=== PATIENT | female | born 1975 | race Caucasian/White ===

== ENCOUNTER 2024-09-20 15:05 | Emergency (ER) | payer OTHER, SELFPAY ==
--- NOTE | 2024-09-20 15:21 | ED.GENMED ---
ED Provider Triage
<Eduardo Najera PA-C - Last Filed: 09/20/24 15:23>
-
Patient seen by provider in Triage?: Seen in Triage
Attestation: A medical screening examination has been initiated by a qualified medical provider. Based on the assessment performed at this time, it has been determined that an emergent medical condition may exist and the patient has been informed
that further medical evaluation and possible additional diagnostic testing may be needed.
HPI: 49-year-old female presenting to the emergency department for evaluation after she excellently slid down a few steps at home. Patient reporting bilateral ankle pain. No other extremity related injuries. No head injury, no LOC. Patient
denies any use of anticoagulants. X-rays of both ankles ordered
GENERAL: Alert , in no apparent distress
EYE: No visual abnormalities.
NECK: Trachea midline
ENT: No visible abnormalities.
LUNGS: No acute respiratory distress
NEUROLOGICAL: Alert and oriented
SKIN: Skin intact. No visible changes.
MUSCULOSKELETAL: Moving extremities normally
PSYCH: Normal and appropriate interaction.
This is a medical evaluation conducted in person to initiate diagnostic evaluation and provide initial therapeutics. Please see further documentation by the treating clinician.
History of Present Illness
<Eduardo Najera PA-C - Last Filed: 09/20/24 15:23>
General
Chief Complaint: Fall
Time Seen by Provider: 09/20/24 16:54
<Bo Cintron Jr., PA-C - Last Filed: 09/20/24 18:08>
General
Source: patient
Exam Limitations: none
Nursing documentation reviewed up to this point in time: agreed with
History of Present Illness
History of Present Illness:
49-year-old female past medical history of seizures diabetes presenting to the emergency department after he slipped on an indoor step injured both of her ankles left side worse on the right has been able to walk but has been hobbling around.
Denies any additional injuries otherwise no numbness or weakness. No neck pain no head pain not on blood thinners.
Past History
<HEATHER Palacios Last Filed: 09/20/24 15:23>
Past History
ED Past Medical History: None
ED Past Surgical History: None
Social History
Living: with family
Review of Systems
<Bo Cintron Jr., PA-C - Last Filed: 09/20/24 18:08>
Review of Systems
Allergies reviewed?: Yes
All Other Systems: ROS reviewed and negative except as documented in HPI and ROS
Phy Exam
<Bo Cintron Jr., PA-C - Last Filed: 09/20/24 18:08>
Physical Exam
Physical Exam:
GENERAL: Alert , in no apparent distress
EYE: pupils equal and reactive
NECK: Supple, no significant adenopathy.
ENT: o/p clr, mmm.
CARDIAC: Regular rate and rhythm .
LUNGS: Clear breath sounds bilaterally, no acute respiratory distress, no wheezes/rales/rhonchi
ABDOMEN: Soft, without focal tenderness, no r/g, no cvat
NEUROLOGICAL: Alert and oriented, no focal neuro deficits
SKIN: Warm and dry, skin intact.
MUSCULOSKELETAL: Swelling tenderness palpation mainly to the left lateral malleolus. Remainder of the foot and medial malleolus without significant tenderness good range of motion no tenderness throughout the tib-fib or knee. Right ankle without
significant discomfort no pain to the foot. No edema, well perfused.
PSYCH: Normal and appropriate interaction.
Course
<HEATHER Palacios Last Filed: 09/20/24 15:23>
Orders/Labs/Results
Orders:
Orders
09/20/24 15:22
CR Ankle - Left Min 3 Views Urgent
Comment:
Reason For Exam: fall, pain
CR Ankle - Right Min 3 Views * Urgent
Comment:
Reason For Exam: fall, pain
09/20/24 17:19
boot [Ortho Boot Left- Treatment] ONCE
Short or tall?: Tall
Vital Signs
Initial and Last Documented VS:
Initial Vital Signs
Temp Pulse Resp BP Pulse Ox
98.1 F 105 20 179/103 99
09/20/24 15:23 09/20/24 15:23 09/20/24 15:23 09/20/24 15:23 09/20/24 15:23
Last Documented Vital Signs
Temp Pulse Resp BP Pulse Ox
98.1 F 80 16 157/105 94
09/20/24 15:23 09/20/24 17:47 09/20/24 17:47 09/20/24 17:47 09/20/24 17:47
<Bo Cintron Jr., PA-C - Last Filed: 09/20/24 18:08>
Orders/Labs/Results
Orders:
Orders
09/20/24 15:22
CR Ankle - Left Min 3 Views Urgent
Comment:
Reason For Exam: fall, pain
CR Ankle - Right Min 3 Views * Urgent
Comment:
Reason For Exam: fall, pain
09/20/24 17:19
boot [Ortho Boot Left- Treatment] ONCE
Short or tall?: Tall
Vital Signs
Initial and Last Documented VS:
Initial Vital Signs
Temp Pulse Resp BP Pulse Ox
98.1 F 105 20 179/103 99
09/20/24 15:23 09/20/24 15:23 09/20/24 15:23 09/20/24 15:23 09/20/24 15:23
Last Documented Vital Signs
Temp Pulse Resp BP Pulse Ox
98.1 F 80 16 157/105 94
09/20/24 15:23 09/20/24 17:47 09/20/24 17:47 09/20/24 17:47 09/20/24 17:47
<Bo Cintron Jr., PA-C - Last Filed: 09/20/24 18:08>
MDM/Problems Addressed
MDM/Problems Addressed:
49-year-old female presenting to the emergency department today after a slip fall and injury mainly to the left ankle some mild pain to the right ankle. Here tenderness mainly to the lateral malleolus. Patient was found to have a distal fibular
fracture on x-ray. She was given a boot and otherwise advised for limited weightbearing but she was unable to use crutches. She was given a walker advised to use to help protect excessive movement of the left ankle pending orthopedic follow-up.
Return precautions given otherwise stable for discharge.
<Bo Cintron Jr., PA-C - Last Filed: 09/20/24 18:08>
*Critical Care Note
Total Time (30-74mins, 75-104mins- exclusive of procedures): Not Applicable
ED Attending Note
<Eduardo Najera PA-C - Last Filed: 09/20/24 15:23>
-
Portions of this chart may have been created with voice recognition software.� Occasional wrong word or��sound alike� substitutions may have occurred due to the inherent limitations of voice recognition software.
Discharge Plan
Departure
Patient Disposition: Home (Routine Discharge)
Date of Disposition: 09/20/24
Time of Disposition: 18:04
Patient with high blood pressure during this ER visit?: No
Condition: Good
Covid-19: Not Applicable
Discharge Problem:
Ankle fracture, left
Instructions: Ankle Fracture ED
Prescriptions:
No Action
prenat.vits,[place],nwf-tfbx-wjdfl [ Vitamin] 1 TAB tablet
1 tab PO
hydrocodone-acetaminophen [[place]] 1 EACH tablet
1 ea PO Q4HPRN PRN (Reason: severe pain) Qty: 8 0RF
Referrals:
Arnoldo Campbell MD [Active] - Follow up in 5-7 days
Ramu Calvillo MD [Family Provider] -
Activity Restrictions/Additional Instructions:
You came to the emergency department today with concerns of an ankle fracture. Return for any worsening, new or concerning symptoms otherwise follow-up closely with orthopedics.
Interventions
Interventions:
*Risk Screen - Suicide Last Done: 09/20/24 15:23
*General Assessment Last Done: 09/20/24 17:44
*Neglect/Abuse Screening Last Done: 09/20/24 17:45
ED- Fall Risk Assessment Last Done: 09/20/24 17:45
*ED COVID-19 Vaccine History Last Done: 09/20/24 17:44
ED-Musculoskeletal Assessment Last Done: 09/20/24 17:45
ED- Neurological Assessment Last Done: 09/20/24 17:45
ED-Skin Assessment Last Done: 09/20/24 17:45
Discharge Date and Time
Print Language: KINYARWANDA
[2024-09-20 15:23] VITALS: BP 179/103
[2024-09-20 17:44] VITALS: BMI 34.1
[2024-09-20 17:47] VITALS: BP 157/105
--- NOTE | 2024-09-20 17:54 | EDRN ---
ED PCT Jenny asked to place tall ortho boot at this time. This RN was asked by Malcom CEDENO for pt to have a walker.
--- NOTE | 2024-09-20 18:18 | EDRN ---
Pt was administered a walker per Malcom CEDENO. Pt was able to ambulate from stretcher to a chair, stand and sit. Pt awaiting to find out about her bag that was left in ambulance.
--- NOTE | 2024-09-20 19:00 | EDRN ---
maintenance operator Gladis was called back and pt's bag was brought by ambulance to her home and left w/ her son. Pt ambulated from her stretcher in [facility] to triage waiting area to charge her phone at [employer] and when it turns on pt will be calling for
an uber to go home.
== END 2024-09-20 19:05 | disposition home or self-care (01) ==
LOC: EMR 15:05
PROVIDERS: EMERGENCY PHYSICIAN Emergency Medicine; FAMILY PHYSICIAN Family Medicine
DX: S82.832A Other fracture of upper and lower end of left fibula, initial encounter for closed fracture (principal); W10.9XXA Fall (on) (from) unspecified stairs and steps, initial encounter
CPT/HCPCS: 99283; 73610